=== PATIENT | male | born 1940 | race Caucasian/White ===

== ENCOUNTER 2016-12-19 15:40 | Inpatient (IN) | payer MEDICARE, MEDICAID ==
[~2016-12-19] VITALS: Ht 188 cm; Wt 85.4 kg
[2016-12-19] MEDS ORDERED: PIPER/TAZO 3.375 GM PYXIS ONE (19:29)
[2016-12-19] MEDS ORDERED: SODIUM CHLORIDE 0.9% 1,000 ML ONE (19:30)
[2016-12-19] MEDS ORDERED: SODIUM CHLORIDE 0.9% 100 ML IV ONE (19:30)
[2016-12-19] MEDS ORDERED: ONDANSETRON 4 MG VIAL IV PRN (20:00)
[2016-12-19] MEDS ORDERED: ACETAMINOPHEN 325 MG TAB PO PRN (20:00)
[2016-12-19] MEDS: CLOPIDOGREL 75 MG TAB PO SCH (20:00)
[2016-12-19] MEDS: BUPROPION HCL 75 MG TAB PO SCH (20:00)
[2016-12-19] MEDS: Losartan 50 MG TAB PO SCH (20:00)
[2016-12-19] MEDS: SALINE FLUSH 10 ML FLUSH SCH (20:00)
[2016-12-19] MEDS ORDERED: PHARMACY TO DOSE VANCOMYCIN IV SCH (20:00)
[2016-12-19] MEDS ORDERED: BISACODYL 10 MG SUPP RECTAL PRN ×2 (20:00)
[2016-12-19] MEDS ORDERED: DEXTROSE 50% SYRINGE 50 ML IV PRN (20:00)
[2016-12-19] MEDS ORDERED: LEVETIRACETAM INJ 1,000 MG in SODIUM CHLORIDE 0.9% 100 ML IV ONE (20:00)
[2016-12-19] MEDS ORDERED: GLUCAGON 1 MG VIAL IM PRN (20:00)
[2016-12-19] MEDS: ISOSORBIDE MONO 30 MG TAB PO SCH (20:00)
[2016-12-19] MEDS: LEVETIRACETAM INJ 500 MG in SODIUM CHLORIDE 0.9% 100 ML IV SCH (20:00)
[2016-12-19] MEDS ORDERED: GUAIFEN/DM 10 ML UDC PO PRN (20:00)
[2016-12-19] MEDS ORDERED: BISACODYL EC 5 MG TAB PO PRN (20:00)
[2016-12-19] MEDS ORDERED: SALINE FLUSH 10 ML FLUSH PRN (20:00)
[2016-12-19] MEDS ORDERED: MAG HYDROX 30 ML UDC PO PRN (20:00)
[2016-12-19] MEDS: METOPROLOL TART 50 MG TAB PO SCH (20:00)
[2016-12-19] MEDS: PREDNISONE 50 MG TAB PO SCH (20:00)
[2016-12-19] MEDS ORDERED: FLEET ENEMA 132 ML BTL RECTAL PRN (20:00)
[2016-12-19] MEDS ORDERED: ALU/MAG/SIM 30 ML UDC PO PRN (20:00)
[2016-12-19] MEDS: MULTIVITS/MINERALS (THERAGRAN M) TAB PO SCH (20:00)
[2016-12-19] MEDS ORDERED: PROMETHAZINE 25 MG/ML VIAL IV PRN (20:00)
[2016-12-19] MEDS ORDERED: VANCOMYCIN 1,750 MG in SODIUM CHLORIDE 0.9% 500 ML IV ONE (20:40)
[2016-12-19] MEDS: BISACODYL EC 5 MG TAB PO SCH (21:00)
[2016-12-19] MEDS: LACTULOSE SOLN 20GM/30ML UDC PO SCH (21:00)
[2016-12-19] MEDS ORDERED: METOPROLOL TART 25 MG TAB PO SCH (21:00)
[2016-12-19] MEDS: BACLOFEN 10 MG TAB PO SCH (21:00)
[2016-12-19 22:25] VITALS: BP_SYST 162; RESP 18; TEMP 98.7
[2016-12-19 22:56] VITALS: Ht 188 cm; Wt 85.4 kg
[2016-12-19] MEDS: DUONEB INH SCH ×2 (23:31→23:54)
[2016-12-19] MEDS: MDI-SPIRIVA 5 DOSES INH SCH (23:31)
[2016-12-19 23:56] VITALS: RESP 16
[2016-12-20] VITALS (8 sets, daily range): BP systolic 115–162; RESP 16–20; TEMP 98.3–99.5
[2016-12-20] MEDS: DUONEB INH SCH ×6 (02:44→22:51)
[2016-12-20] MEDS: PANTOPRAZOLE 40 MG TAB PO SCH (04:39)
[2016-12-20] MEDS: SODIUM CHLORIDE 0.9% FLUSH BAG 500 ML IV SCH (06:19)
[2016-12-20] MEDS: MDI-SPIRIVA 5 DOSES INH SCH (07:10)
[2016-12-20] MEDS: SALINE FLUSH 10 ML FLUSH SCH ×2 (09:01→20:00)
[2016-12-20] MEDS: LEVETIRACETAM INJ 500 MG in SODIUM CHLORIDE 0.9% 100 ML IV SCH ×2 (09:01→23:20)
[2016-12-20] MEDS ORDERED: VANCOMYCIN 1,500 MG in SODIUM CHLORIDE 0.9% 250 ML IV SCH (10:00)
[2016-12-20] MEDS: MULTIVITS/MINERALS (THERAGRAN M) TAB PO SCH (11:09)
[2016-12-20] MEDS: BACLOFEN 10 MG TAB PO SCH ×2 (11:09→20:30)
[2016-12-20] MEDS: PREDNISONE 50 MG TAB PO SCH (11:09)
[2016-12-20] MEDS: Losartan 50 MG TAB PO SCH (11:10)
[2016-12-20] MEDS: METOPROLOL TART 50 MG TAB PO SCH (11:10)
[2016-12-20] MEDS: ISOSORBIDE MONO 30 MG TAB PO SCH (11:10)
[2016-12-20] MEDS: BUPROPION HCL 75 MG TAB PO SCH (11:11)
[2016-12-20] MEDS: CLOPIDOGREL 75 MG TAB PO SCH (16:52)
[2016-12-20] MEDS: LACTULOSE SOLN 20GM/30ML UDC PO SCH (20:29)
[2016-12-20] MEDS: BISACODYL EC 5 MG TAB PO SCH (20:29)
[2016-12-20] MEDS: Atorvastatin 40 MG TAB PO SCH (20:30)
[2016-12-21] VITALS (8 sets, daily range): BP systolic 122–151; RESP 18–20; TEMP 99–100
[2016-12-21] MEDS: VANCOMYCIN 1,250 MG in SODIUM CHLORIDE 0.9% 250 ML IV SCH ×2 (00:02→11:02)
[2016-12-21] MEDS: DUONEB INH SCH ×6 (02:50→22:30)
[2016-12-21] MEDS: PANTOPRAZOLE 40 MG TAB PO SCH (06:15)
[2016-12-21] MEDS: SODIUM CHLORIDE 0.9% FLUSH BAG 500 ML IV SCH (06:23)
[2016-12-21] MEDS: MDI-SPIRIVA 5 DOSES INH SCH (06:53)
[2016-12-21] MEDS: LEVETIRACETAM INJ 500 MG in SODIUM CHLORIDE 0.9% 100 ML IV SCH ×2 (07:18→19:55)
[2016-12-21] MEDS: SALINE FLUSH 10 ML FLUSH SCH ×2 (07:42→19:57)
[2016-12-21] MEDS: CLOPIDOGREL 75 MG TAB PO SCH (08:56)
[2016-12-21] MEDS: Losartan 50 MG TAB PO SCH (08:56)
[2016-12-21] MEDS: BUPROPION HCL 75 MG TAB PO SCH (08:56)
[2016-12-21] MEDS: MULTIVITS/MINERALS (THERAGRAN M) TAB PO SCH (08:56)
[2016-12-21] MEDS: ISOSORBIDE MONO 30 MG TAB PO SCH (08:56)
[2016-12-21] MEDS: BACLOFEN 10 MG TAB PO SCH ×2 (08:56→20:04)
[2016-12-21] MEDS: METOPROLOL TART 50 MG TAB PO SCH (08:56)
[2016-12-21] MEDS: PREDNISONE 50 MG TAB PO SCH (08:56)
[2016-12-21] MEDS: LACTULOSE SOLN 20GM/30ML UDC PO SCH (20:04)
[2016-12-21] MEDS: Atorvastatin 40 MG TAB PO SCH (20:04)
[2016-12-21] MEDS: BISACODYL EC 5 MG TAB PO SCH (20:04)
[2016-12-22] VITALS (10 sets, daily range): BP systolic 116–190; RESP 18–20; TEMP 97.9–101.1
[2016-12-22] MEDS: VANCOMYCIN 1,000 MG in SODIUM CHLORIDE 0.9% 250 ML IV SCH ×2 (02:06→15:19)
[2016-12-22] MEDS: DUONEB INH SCH ×6 (02:56→22:35)
[2016-12-22] MEDS: MDI-SPIRIVA 5 DOSES INH SCH (06:08)
[2016-12-22] MEDS: PANTOPRAZOLE 40 MG TAB PO SCH (06:34)
[2016-12-22] MEDS: SODIUM CHLORIDE 0.9% FLUSH BAG 500 ML IV SCH (06:35)
[2016-12-22] MEDS: MULTIVITS/MINERALS (THERAGRAN M) TAB PO SCH (09:18)
[2016-12-22] MEDS: BACLOFEN 10 MG TAB PO SCH ×2 (09:18→19:55)
[2016-12-22] MEDS: Losartan 50 MG TAB PO SCH (09:18)
[2016-12-22] MEDS: BUPROPION HCL 75 MG TAB PO SCH (09:18)
[2016-12-22] MEDS: CLOPIDOGREL 75 MG TAB PO SCH (09:18)
[2016-12-22] MEDS: ISOSORBIDE MONO 30 MG TAB PO SCH (09:18)
[2016-12-22] MEDS: SALINE FLUSH 10 ML FLUSH SCH ×2 (09:18→20:17)
[2016-12-22] MEDS: LEVETIRACETAM INJ 500 MG in SODIUM CHLORIDE 0.9% 100 ML IV SCH ×2 (09:18→19:54)
[2016-12-22] MEDS: PREDNISONE 50 MG TAB PO SCH (09:19)
[2016-12-22] MEDS: METOPROLOL TART 50 MG TAB PO SCH (09:19)
[2016-12-22] MEDS: BISACODYL EC 5 MG TAB PO SCH (19:55)
[2016-12-22] MEDS: LACTULOSE SOLN 20GM/30ML UDC PO SCH (19:55)
[2016-12-22] MEDS: Atorvastatin 40 MG TAB PO SCH (19:55)
[2016-12-23] MEDS: VANCOMYCIN 1,000 MG in SODIUM CHLORIDE 0.9% 250 ML IV SCH ×2 (02:19→14:00)
[2016-12-23] MEDS: DUONEB INH SCH ×6 (02:40→23:04)
[2016-12-23 02:50] VITALS: BP_SYST 152; RESP 20; TEMP 98.4
[2016-12-23] MEDS: SODIUM CHLORIDE 0.9% FLUSH BAG 500 ML IV SCH (06:13)
[2016-12-23] MEDS: PANTOPRAZOLE 40 MG TAB PO SCH (06:14)
[2016-12-23 07:26] VITALS: BP_SYST 162; RESP 20; TEMP 98.3
[2016-12-23] MEDS: SALINE FLUSH 10 ML FLUSH SCH (08:00)
[2016-12-23] MEDS: MDI-SPIRIVA 5 DOSES INH SCH (08:16)
[2016-12-23] MEDS: ISOSORBIDE MONO 30 MG TAB PO SCH (08:48)
[2016-12-23] MEDS: MULTIVITS/MINERALS (THERAGRAN M) TAB PO SCH (08:48)
[2016-12-23] MEDS: BUPROPION HCL 75 MG TAB PO SCH (08:48)
[2016-12-23] MEDS: BACLOFEN 10 MG TAB PO SCH ×2 (08:48→21:04)
[2016-12-23] MEDS: Losartan 50 MG TAB PO SCH (08:48)
[2016-12-23] MEDS: METOPROLOL TART 50 MG TAB PO SCH (08:48)
[2016-12-23] MEDS: CLOPIDOGREL 75 MG TAB PO SCH (08:48)
[2016-12-23] MEDS: PREDNISONE 50 MG TAB PO SCH (08:48)
[2016-12-23] MEDS: LEVETIRACETAM INJ 500 MG in SODIUM CHLORIDE 0.9% 100 ML IV SCH ×3 (08:51→18:44)
[2016-12-23 11:00] VITALS: BP_SYST 150; RESP 18; TEMP 98.4
[2016-12-23 15:00] VITALS: BP_SYST 127; RESP 18; TEMP 99.8
[2016-12-23 19:00] VITALS: BP_SYST 121; RESP 18; TEMP 99.7
[2016-12-23] MEDS: Atorvastatin 40 MG TAB PO SCH (21:04)
[2016-12-23] MEDS: VANCOMYCIN 750 MG in SODIUM CHLORIDE 0.9% 250 ML IV SCH (21:04)
[2016-12-23] MEDS: LACTULOSE SOLN 20GM/30ML UDC PO SCH (21:04)
[2016-12-23 23:00] VITALS: BP_SYST 122; RESP 20; TEMP 99.8
[2016-12-24] MEDS: SALINE FLUSH 10 ML FLUSH SCH ×2 (01:07→08:00)
[2016-12-24] MEDS: LEVETIRACETAM INJ 500 MG in SODIUM CHLORIDE 0.9% 100 ML IV SCH ×3 (01:09→11:59)
[2016-12-24] MEDS: BISACODYL EC 5 MG TAB PO SCH (01:09)
[2016-12-24] MEDS: DUONEB INH SCH ×3 (03:00→10:17)
[2016-12-24 04:06] VITALS: BP_SYST 109; RESP 20; TEMP 99.9
[2016-12-24] MEDS: SODIUM CHLORIDE 0.9% FLUSH BAG 500 ML IV SCH (05:46)
[2016-12-24] MEDS: PANTOPRAZOLE 40 MG TAB PO SCH (06:15)
[2016-12-24 07:22] VITALS: BP_SYST 132; RESP 20; TEMP 99.7
[2016-12-24] MEDS: MDI-SPIRIVA 5 DOSES INH SCH (07:30)
[2016-12-24] MEDS: VANCOMYCIN 750 MG in SODIUM CHLORIDE 0.9% 250 ML IV SCH (09:09)
[2016-12-24] MEDS: ISOSORBIDE MONO 30 MG TAB PO SCH (09:31)
[2016-12-24] MEDS: METOPROLOL TART 50 MG TAB PO SCH (09:31)
[2016-12-24] MEDS: BUPROPION HCL 75 MG TAB PO SCH (09:31)
[2016-12-24] MEDS: CLOPIDOGREL 75 MG TAB PO SCH (09:31)
[2016-12-24] MEDS: PREDNISONE 50 MG TAB PO SCH (09:31)
[2016-12-24] MEDS: MULTIVITS/MINERALS (THERAGRAN M) TAB PO SCH (09:31)
[2016-12-24] MEDS: Losartan 50 MG TAB PO SCH (09:31)
[2016-12-24] MEDS: BACLOFEN 10 MG TAB PO SCH (09:32)
[2016-12-24 11:16] VITALS: BP_SYST 128; RESP 20; TEMP 99.7
[2016-12-24 12:07] VITALS: BP_SYST 128; RESP 20; TEMP 99.7
[2016-12-24 12:24] VITALS: BP_SYST 128; RESP 20; TEMP 99.7
[2016-12-24 12:30] VITALS: BP_SYST 128; RESP 20; TEMP 99.7
== END 2016-12-24 14:08 | DRG 64 ==
LOC: ENRESERVDT → ENRESERVTM → ER 15:40 → ENPENDDIS 19:57 → EMR 19:57 → PCU2 22:23
PROVIDERS: ADMIT Internal Medicine; ATTEND Internal Medicine
DX: I63.9 Cerebral infarction, unspecified (principal); J18.9 Pneumonia, unspecified organism; G81.91 Hemiplegia, unspecified affecting right dominant side; F03.90 Unspecified dementia, unspecified severity, without behavioral disturbance, psychotic disturbance, mood disturbance, and anxiety; J44.0 Chronic obstructive pulmonary disease with (acute) lower respiratory infection; R56.9 Unspecified convulsions; Y95 Nosocomial condition; I10 Essential (primary) hypertension; E11.9 Type 2 diabetes mellitus without complications; I73.9 Peripheral vascular disease, unspecified; Z87.891 Personal history of nicotine dependence; Z82.3 Family history of stroke; Z82.49 Family history of ischemic heart disease and other diseases of the circulatory system; I65.23 Occlusion and stenosis of bilateral carotid arteries
CPT/HCPCS: 36415; 70450; 70551; 71010; 80048; 80053; 80061; 80202; 81003; 82140; 82947; 83605; 83735; 84439; 84443; 85025; 85652; 86141; 87040; 87493; 93005; 93306; 93880; 94640; 94799; 95819; 96365; 96366; 96367; 96375; 99223; 99232; 99233; 99239